=== PATIENT | female | born 1975 | race Two or more races ===

== ENCOUNTER 2017-01-25 06:16 | Day surgery (SDC) | payer OTHER ==
--- NOTE | 2017-01-21 22:49 | PREOPHP ---
DATE OF ADMISSION: 01/25/2017 The patient is coming on 01/25/2017 for a surgical procedure. HISTORY OF PRESENT ILLNESS: This is a 41-year-old female, 4, para 3 with 1 , 3 jayda ng children. This patient had seen me last year with a complaint of polycystic ovaries, weight gain , menometrorrhagia, pelvic pain, pelvic pressure all the time, history of fibroid uterus, endometrio sis, also history of her mother having the same problem, and dysmenorrhea, dyspareunia. This patien t had a history of a tubal ligation. ALLERGIES: 1. SHE IS ALLERGIC TO PENICILLIN. 2. LATEX. MEDICATIONS: 1. She is on spironolactone. 2. Metformin. FAMILY HISTORY: Hypertension, heart attacks, and strokes. PLAN: She is having a D and C, hysteroscopy, hydrothermal ablation. This patient had a tubal ligat ion. She would like to try to see if the procedure will help her have less pelvic pain and less ble eding, so a hydrothermal ablation was offered plus a D and C hysteroscopy to assess the endometrium for fibroids and also to rule out malignancy. At the same time, the patient had a vaginal septum th at has been there since many years and this will be removed due to the fact that it interferes durin g sexual intercourse. The patient has a history of PCO syndrome, fibroids, menometrorrhagia for a l dhiraj time that has become worse lately. PHYSICAL EXAMINATION: VITAL SIGNS: Blood pressure 120/70, pulse is 80, respirations 16. She weighs 122 pounds and she is 5 feet 9 inches. HEAD: Normal. NECK: Normal. BREASTS: Soft, nontender. No masses. CHEST: Clear. HEART: Normal sinus rhythm. LUNGS: Clear. ABDOMEN: Soft, nontender. No masses. GENITALIA: Normal externally. Cervix normal. Uterus retroverted, flexed, normal size with fibroid s about 8 weeks size, very painful. Adnexa are normal. EXTREMITIES: Normal. DIAGNOSES: 1. Fibroid uterus. 2. Menometrorrhagia. 3. Polycystic ovarian syndrome. She is undergoing a D and C hysteroscopy, hydrothermal ablation. The patient has been advised of th e possible risks and possible complications of the procedure with her alternatives and options. Wri tten information was provided. She had no more questions and agreed to go ahead with the procedure with full understanding and no more questions. Dictated By: BEATRICE NOWAK/KATELIN Conf#: [id number] DID#: [id number]
[2017-01-25] VITALS (11 sets, daily range): BP systolic 93–107; BP diastolic 52–73; PULSE 56–70; RESP 18–37; Ht 175.3 cm; Wt 98.1 kg
[~2017-01-25] VITALS: Ht 175.3 cm; Wt 98.1 kg
[2017-01-25] MEDS ORDERED: ETOMIDATE 20 MG INJ ONE (07:50)
[2017-01-25] MEDS ORDERED: LIDOCAINE 2% (SDV) 5 ML INJ ONE (07:51)
[2017-01-25] MEDS ORDERED: MIDAZOLAM 1 MG/ML 2 ML INJ ONE (07:51)
[2017-01-25] MEDS ORDERED: FENTAnyl 50 MCG/ML VIAL ONE (07:51)
--- NOTE | 2017-01-25 08:14 | HPN ---
Date/Time of Note Date/Time of Note DATE: 01/25/17 TIME: 08:14 Interval H&P Admission Note Pt. seen H&P reviewed: No system changes BEATRICE MEDINA MD January 25, 2017 08:14
[2017-01-25] MEDS ORDERED: DEXAMETHASONE 4 MG/ML 1 ML INJ ONE (08:26)
[2017-01-25] MEDS ORDERED: FAMOTIDINE 20 MG INJ ONE (08:26)
[2017-01-25] MEDS ORDERED: ONDANSETRON 4 MG INJ ONE (08:26)
[2017-01-25] MEDS ORDERED: CLINDAMYCIN 900 MG/D5W (PMX) 50 ML IVPB ONE ×2 (08:30→14:30)
[2017-01-25] MEDS ORDERED: DIPHENHYDRAMINE 50 MG INJ IV PRN (09:00)
[2017-01-25] MEDS ORDERED: MEPERIDINE 25 MG INJ IV PRN (09:00)
[2017-01-25] MEDS ORDERED: PROCHLORPERAZINE 10 MG INJ IV PRN (09:00)
[2017-01-25] MEDS ORDERED: HYDROmorphONE (0.2 MG/ML) 10ML SYG IV PRN (09:00)
--- NOTE | 2017-01-25 10:06 | PD.PPDC ---
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
--- NOTE | 2017-01-25 10:09 | OPR ---
Date/Time of Note Date/Time of Note DATE: 01/25/17 TIME: 10:07 Operative Report Free Text/Dictation FRACTIONAL D&C HYSTEROSCOPIC HYDROTHERMAL ABLATION Procedure Date: January 25, 2017 Preoperative Diagnosis INTRACTABLE UFNMI METRORRHAGIA FIBROID UTERUS PCO SYNDROME Postoperative Diagnosis SAME Surgeon: BEATRICE MEDINA MD Anesthesia: general Anesthesiologist: DONA DUARTE DO Estimated Blood Loss: minimal Complications: None Pt Condition Post Procedure: stable Disposition: PACU BEATRICE MEDINA MD January 25, 2017 10:09
[2017-01-25] MEDS: HYDROmorphONE (0.2 MG/ML) 10ML SYG IV PRN ×3 (10:18→10:30)
--- NOTE | 2017-01-25 10:28 | OPR ---
DATE OF OPERATION: 01/25/2017 PROCEDURE: Fractional D and C, hysteroscopic hydrothermal ablation. PREOPERATIVE DIAGNOSES: 1. Intractable menometrorrhagia. 2. Fibroid uterus. 3. Polycystic ovaries. 4. Obesity. POSTOPERATIVE DIAGNOSES: 1. Intractable menometrorrhagia. 2. Fibroid uterus. 3. Polycystic ovaries. 4. Obesity. SURGEON: Dr. Kebede ANESTHESIA: Dr. Nassar, general anesthesia. COMPLICATIONS: None. DESCRIPTION OF PROCEDURE: The patient was given general anesthesia and placed in the lithotomy posi tion. The perineal and vaginal area were prepped and draped, and a straight catheter was down to th e bladder. Examination under anesthesia revealed that there was a uterus that is retroverted with a fibroid of about 10 weeks' size. The adnexa were nonpalpable. There was some prolapse of the uter us to a grade II to III. The vaginal speculum was applied. The cervix was held. Endocervical cure ttage was done. The uterus was sounded to a depth of 10 cm and dilated slightly, because it was alr penny dilated. The curettage was done to the cavity, obtaining the tissue for histopathology. The h ydrothermal ablation hysteroscope was placed inside the cavity with ascertaining. We put a lot of s eal around the cervix due to the fact that the cervix was slightly incompetent. The machine warmed up the media to 90 degrees Celsius, where the flow went in the lining of the uterus, doing the hydro thermal ablation. This was done for 10 minutes. Then the media cooled down and the procedure was f inished by removing all the instruments. The patient tolerated the procedure well and left the OR a wake and stable. Sponge counts and instrument counts were correct and intravenous antibiotics were given for prophylaxis. Dictated By: BEATRICE NOWAK/KATELIN Conf#: [id number] DID#: [id number]
[2017-01-25] MEDS ORDERED: KETOROLAC 30 MG INJ IV PRN (10:30)
[2017-01-25] MEDS ORDERED: KETOROLAC 30 MG INJ IV ONE (10:30)
--- NOTE | 2017-01-25 11:29 | RADRPT ---
Vent Rate: 51 bpm RR Interval: 0 msec DE Interval: 124 msec QRS Duration: 94 msec QT Interval: 456 msec QTC Interval: 420 msec P-R-T Galien: 46 - 45 - 37 degrees Sinus bradycardia Otherwise normal ECG Electronically Signed By: Terrance Delacruz [id number]
== END 2017-01-25 11:30 | disposition home or self-care (01) ==
LOC: SDS 06:16
PROVIDERS: ATTEND Obstetrics & Gynecology
DX: N72 Inflammatory disease of cervix uteri (principal); E28.2 Polycystic ovarian syndrome; D25.9 Leiomyoma of uterus, unspecified; E66.9 Obesity, unspecified; Z68.31 Body mass index [BMI] 31.0-31.9, adult
CPT/HCPCS: 58563; 88305; 93005; J1100; J1170; J1885; J2175; J2250; J2405; J3010; Z7512; Z7610

== ENCOUNTER 2017-08-07 06:18 | Inpatient (IN) | payer OTHER ==
[2017-08-07] VITALS (33 sets, daily range): BP systolic 103–131; BP diastolic 55–84; PULSE 67–92; RESP 12–30; Ht 175.3 cm; Wt 99.7 kg
[~2017-08-07] VITALS: Ht 175.3 cm; Wt 99.7 kg
[2017-08-07] MEDS ORDERED: PROPOFOL 20 ML ONE (06:30)
[2017-08-07] MEDS ORDERED: CLINDAMYCIN 900 MG/D5W (PMX) 50 ML IVPB SCH (06:30)
[2017-08-07] MEDS ORDERED: FENTAnyl 50 MCG/ML VIAL IV PRN ×3 (06:30→11:00)
[2017-08-07] MEDS ORDERED: morphine (1 MG/ML) 10ML SYRINGE IV PRN ×3 (06:30)
[2017-08-07] MEDS ORDERED: OXYCODONE/ACETAMINOPHEN (5/325) TAB PO PRN ×2 (06:30)
[2017-08-07] MEDS ORDERED: DEXTROSE 5%-LR 1,000 ML IV SCH (06:30)
[2017-08-07] MEDS ORDERED: ONDANSETRON 4 MG INJ IV PRN ×3 (06:30→14:00)
[2017-08-07] MEDS ORDERED: GLYCOPYRROLATE 0.4 MG INJ ONE (06:30)
[2017-08-07] MEDS ORDERED: DIPHENHYDRAMINE 50 MG INJ IV PRN (06:30)
[2017-08-07] MEDS ORDERED: hydrALAzine 20 MG INJ IV PRN (06:30)
[2017-08-07] MEDS ORDERED: ROCURONIUM 50 MG INJ ONE (06:30)
[2017-08-07] MEDS ORDERED: MEPERIDINE 25 MG INJ IV PRN ×2 (06:30→11:00)
[2017-08-07] MEDS ORDERED: MIDAZOLAM 1 MG/ML 2 ML INJ IV PRN (06:30)
[2017-08-07] MEDS ORDERED: ATROPINE 1 MG/10 ML SYRINGE IV PRN (06:30)
[2017-08-07] MEDS ORDERED: LIDOCAINE 2% (SDV) 5 ML INJ ONE (06:30)
[2017-08-07] MEDS ORDERED: NEOSTIGMINE 3 MG/3 ML SYRINGE ONE (06:30)
[2017-08-07] MEDS ORDERED: LABETALOL HCL 20MG INJ IV PRN (06:30)
[2017-08-07] MEDS ORDERED: EPHEDrine SULFATE 50 MG/5 ML SYG IV PRN (06:30)
[2017-08-07] MEDS ORDERED: HYDROmorphONE (0.2 MG/ML) 10ML SYG IV PRN ×3 (06:30)
[2017-08-07] MEDS ORDERED: FENTAnyl 50 MCG/ML VIAL ONE ×2 (06:31→10:55)
[2017-08-07] MEDS ORDERED: MIDAZOLAM 1 MG/ML 2 ML INJ ONE (06:31)
[2017-08-07] MEDS ORDERED: SUGAMMADEX SODIUM 200 MG/2 ML VIAL IV ONE (06:37)
[2017-08-07] MEDS ORDERED: DEXAMETHASONE 4 MG/ML 1 ML INJ ONE (06:37)
[2017-08-07] MEDS ORDERED: ONDANSETRON 4 MG INJ ONE ×2 (06:37→10:55)
[2017-08-07] MEDS ORDERED: CLINDAMYCIN 900 MG/50 ML D5W IVPB IVPB ONE (07:00)
[2017-08-07] MEDS ORDERED: EPHEDrine SULFATE 50 MG/5 ML SYG ONE (07:00)
[2017-08-07] MEDS ORDERED: THROMBIN 5000 UNIT VIAL ONE (07:05)
[2017-08-07] MEDS ORDERED: BUPIVACAINE 0.5%/EPI (SDV) 30 ML INJ ONE (07:05)
--- NOTE | 2017-08-07 07:52 | HPN ---
Date/Time of Note Date/Time of Note DATE: 08/07/17 TIME: 07:52 Interval H&P Admission Note Pt. seen H&P reviewed: No system changes BEATRICE MEDINA MD Aug 07, 2017 07:52
--- NOTE | 2017-08-07 07:53 | PREOPHP ---
DATE OF ADMISSION: 08/07/2017 The patient is coming on Saturday for a hysterectomy. HISTORY OF PRESENT ILLNESS: This is a 42-year-old female, 4, para 3, abortions 1, with a pr evious tubal ligation. This patient has been having difficulties due to a fibroid uterus, endometri osis, intractable pelvic pain and bleeding that has been intractable with medication. This patient also had in 12/2016 a hydrothermal ablation to try to control her bleeding and pain and she is still not able to perform her regular activities due to pain on a daily basis. This patient has a histor y of endometriosis and a history of endometriosis as well, where her mother had endometriosis. She could not take the control pills due to side effects or IUD for the same reasons, and she is r equesting alleviation of her pain due to her suffering from cramping and back pain on a daily basis. She is constantly on pain medication, which is diclofenac 75 mg and she has to be on lorazepam 1 m g because of the same reason. PAST MEDICAL HISTORY: As I said in the HPI; she had early menopause. She has dysmenorrhea, dyspare unia and a history of tubal ligation. She also has a history of polycystic ovaries and weight gain. ALLERGIES: THE PATIENT IS ALLERGIC TO PENICILLIN AND LATEX. MEDICATIONS: She has been on lorazepam, diclofenac, and metformin. FAMILY HISTORY: Hypertension, heart attacks and strokes. PHYSICAL EXAMINATION: GENERAL APPEARANCE: She is obese. Her weight is 219. She is 5 feet 9 inches. VITAL SIGNS: Pulse is 80. HEAD AND NECK: Normal. BREASTS: Soft, nontender, no masses. CHEST: Clear. HEART: Normal sinus rhythm. LUNGS: Clear. BREASTS: Soft, nontender, no masses. ABDOMEN: Soft, nontender, no masses. GENITALIA: Very painful on examination with a retroverted flexed uterus with fibroids, very painful mobilization. Adnexa are also noncontributory with no adnexal mass. EXTREMITIES: Normal. RECTAL: Normal. DIAGNOSES: Intractable pelvic pain and bleeding, early fibroid uterus, endometriosis. PLAN: She is undergoing a vaginal total hysterectomy, possible KARLO. The patient was recently place d on Wellbutrin to be able to cope with her problems. She had a history of taking metformin that wa s for her polycystic ovaries. Last Pap smear was normal. The patient has been advised of the possi ble risks and possible complications of the procedure with her alternatives and options. Written in formation was provided. She had no more questions and agreed to go ahead with the procedure with fu ll understanding and no more questions. Dictated By: BEATRICE NOWAK/KATELIN Conf#: [id number] DID#: [id number]
[2017-08-07] MEDS ORDERED: DIPHENHYDRAMINE 50 MG INJ ONE (08:53)
[2017-08-07] MEDS ORDERED: LIDOCAINE 4% CR ONE (09:26)
--- NOTE | 2017-08-07 10:27 | SIPON ---
Date/Time of Note Date/Time of Note DATE: 08/07/17 TIME: 10:22 Operative Report Preoperative Diagnosis INTRACTABLE PELVIC PAIN AND BLEEDING FIBROID UTERUS AND ENDOMETRIOSIS EARLY MENOPAUSE Postoperative Diagnosis SAME Operation/Procedure Performed VAGINAL TOTAL HYSTERECTOMY Surgeon see signature line surgical assistant NANCY Anesthesia: general Estimated blood loss: 10 - 50 ml's Transfusion Required none Specimen UTERUS Grafts/Implants none Complications none BEATRICE MEDINA MD Aug 07, 2017 10:27
[2017-08-07] MEDS ORDERED: DIPHENHYDRAMINE 50 MG CAP PO PRN (10:30)
[2017-08-07] MEDS ORDERED: BISACODYL (EC) 5 MG TAB PO PRN (10:30)
[2017-08-07] MEDS ORDERED: MEPERIDINE 10 MG/ML 30 ML PCA IV SCH ×2 (10:30→14:30)
[2017-08-07] MEDS ORDERED: ZOLPIDEM 5 MG TAB PO PRN (10:30)
[2017-08-07] MEDS ORDERED: MEPERIDINE 25 MG INJ ONE (10:56)
[2017-08-07] MEDS: KETOROLAC 30 MG INJ IV SCH ×3 (10:56→22:31)
[2017-08-07] MEDS: METOCLOPRAMIDE 10 MG TAB PO SCH ×2 (12:00→17:43)
--- NOTE | 2017-08-07 12:03 | OPR ---
DATE OF OPERATION: 08/07/2017 PREOPERATIVE DIAGNOSES: 1. Intractable pelvic pain and bleeding. 2. Fibroid uterus, endometriosis. 3. Chronic pelvic pain. 4. Early menopause. POSTOPERATIVE DIAGNOSES: 1. Intractable pelvic pain and bleeding. 2. Fibroid uterus, endometriosis. 3. Chronic pelvic pain. 4. Early menopause. SURGEON: Beatrice Kebede MD. ANESTHESIOLOGIST: Brian Marshall MD ANESTHESIA: General. DESCRIPTION OF PROCEDURE: The patient was given general anesthesia, placed in the lithotomy positi on. The perineal and vaginal area were prepped and draped and the anesthesia had been given. The e xamination under anesthesia revealed that the uterus was retroverted and hypertrophic. Adnexa were nonpalpable. The vaginal speculum was applied. The cervix was held with a Jolie clamp and an injec tion was given around the cervicovaginal junction with Xylocaine and epinephrine. The incision was made at the cervicovaginal junction. A circular incision was made. The anterior cul-de-sac was fou nd and the posterior cul-de-sac was found. The cardinal ligaments and uterosacral ligaments and mira rine arteries were burned with the LigaSure instrument and at this time, the uterus was inverted. T he Ada clamp was passed through the ovarian tube and ligament and the uterus was removed in both sides. The adnexal pedicles stump was closed with #2 [id number] sutures with #1 Vicryl and the se sutures were held. Now at the area of the cardinal ligaments, a couple of stitches were placed w ith the #1 Vicryl and these stitches were held. The adnexal pedicle and the cardinal ligaments were tied to ipsilateral side. The area anteriorly with a Vázquez needle, the adnexal pedicle was passed through, the stump was held at the anterior vaginal vault and the cardinal ligaments, uterosacral l igaments were held at the posterior vaginal vault. At this time, the visualization inside was of no bleeding. The ovaries were not visualized along with the tubes. They both were very high up in th e pelvis. This patient is very tall and has very long vagina, has no prolapse. The peritonealizati on was done with a 2-0 Vicryl suture and the cavity was closed. The adnexal pedicles and the uteros acral ligament pedicles were tied to the anterior and posterior vaginal vault lifting the vaginal va ult. The rest of the vagina was closed with a vertical stitch with #1 Vicryl and hemostasis was goo d. Xeroform gauze was left in the vagina. The patient tolerated the procedure well and left the OR awake and stable. Sponge counts, instrument counts, needle counts were correct and intravenous ant ibiotics were given for prophylaxis. Dictated By: BEATRICE NOWAK/KATELIN Conf#: [id number] DID#: [id number]
[2017-08-07] MEDS: LACTATED RINGER'S 1,000 ML IV SCH ×3 (13:49→21:40)
[2017-08-08] MEDS: METOCLOPRAMIDE 10 MG TAB PO SCH ×4 (00:01→17:33)
[2017-08-08 01:28] VITALS: BP 109/51; RESP 18
[2017-08-08] MEDS: KETOROLAC 30 MG INJ IV SCH ×4 (04:56→22:37)
[2017-08-08 05:18] LABS: BASOPHILS % 0.2 % (0.0-2.0); EOSINOPHILS % 0.1 % (0.0-7.0); HEMATOCRIT 38.2 % (37.0-47.0); HEMOGLOBIN 12.9 g/dl (12.0-16.0); LYMPHOCYTES # 1.7 10^3/ul (0.8-2.9); LYMPHOCYTES % 10.9 % (15.0-51.0); MEAN CORPUSCULAR HEMOGLOBIN 30.4 pg (29.0-33.0); MEAN CORPUSCULAR HGB CONC 33.8 g/dl (32.0-37.0); MEAN CORPUSCULAR VOLUME 90.1 fl (82.0-101.0); MEAN PLATELET VOLUME 10.1 fl (7.4-10.4); MONOCYTES % 6.6 % (0.0-11.0); NEUTROPHIL # 12.8 10^3/ul (1.6-7.5); NEUTROPHILS % 81.5 % (39.0-77.0); PLATELET COUNT 200 10^3/UL (140-415); RED BLOOD COUNT 4.24 10^6/ul (4.20-5.40); RED CELL DISTRIBUTION WIDTH 11.9 % (11.5-14.5); WHITE BLOOD COUNT 15.7 10^3/ul (4.8-10.8)
[2017-08-08 05:42] LABS: CREATININE 0.66 mg/dl (0.44-1.00); POTASSIUM 3.8 mmol/L (3.5-5.1)
[2017-08-08] MEDS: LACTATED RINGER'S 1,000 ML IV SCH (06:48)
[2017-08-08 07:33] VITALS: BP 104/57; RESP 20
[2017-08-08] MEDS ORDERED: BISACODYL (EC) 5 MG TAB PO ONE (10:30)
--- NOTE | 2017-08-08 10:31 | PN ---
Date/Time of Note Date/Time of Note DATE: 08/08/17 TIME: 10:30 Assessment/Plan Lines/Catheters IV Catheter Type (from Nrsg): Peripheral IV Bales in Place (from Nrsg): Yes Subjective 24 Hr Interval Summary Day 1 post vaginal hysterectomy Feeling okay except for some pain Passing gases already Stable, afebrile Vaginal pack removed dry Bales will be discontinued now Encouraged ambulation Surgery explained to patient She feels good overall Patient is thankful Constitutional: BM, ambulates, flatus, improved, no complaints, urine output Feeding: advancing diet Pain Control: well controlled Detailed Summary Eyes: no complaints ENT: no complaints Respiratory: no complaints Cardiovascular: no complaints Gastrointestinal: no complaints Genitourinary: no complaints Musculoskeletal: no complaints Skin: no complaints Neurologic: no complaints Endocrine: no complaints Lymphatic: no complaints Psychological: nl mood/affect, no complaints Immunologic: no complaints Exam/Review of Systems Vital Signs Vitals Vital Signs Date Time Temp Pulse Resp B/P Pulse Ox O2 Delivery O2 Flow Rate FiO2 08/08/17 07:33 98.1 68 20 104/57 100 08/07/17 17:00 Room Air Intake and Output 08/07/17 08/07/17 08/08/17 15:00 23:00 07:00 Intake Total 1120 ml 2390 ml 1250 ml Output Total 250 ml 1500 ml 1200 ml Balance 870 ml 890 ml 50 ml Exam Constitutional: alert, oriented, well developed Psych: nl mood/affect, no complaints Head: atraumatic, normocephalic Eyes: EOMI, nl conjunctiva, nl lids, nl sclera ENMT: mucosa pink and moist, nl external ears & nose, nl lips & teeth, nl nasal mucosa & septum Neck: non-tender, supple Respiratory: clear to auscultation, normal air movement Cardiovascular: nl pulses, regular rate and rhythm Gastrointestinal: nl liver, spleen, non-tender, soft Musculoskeletal: nl extremities to inspection, nl gait and stance Extremities: normal pulses 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
[2017-08-08] MEDS ORDERED: MEPERIDINE 10 MG/ML 30 ML PCA IV SCH (11:00)
[2017-08-08] MEDS ORDERED: METOCLOPRAMIDE 10 MG TAB PO SCH (12:00)
[2017-08-08 14:40] VITALS: BP 122/73; RESP 18
[2017-08-08 20:00] VITALS: BP 115/61; RESP 18
[2017-08-09 02:05] VITALS: BP 114/78; RESP 18
[2017-08-09] MEDS: METOCLOPRAMIDE 10 MG TAB PO SCH ×3 (06:00→12:00)
[2017-08-09] MEDS: KETOROLAC 30 MG INJ IV SCH ×2 (06:46→11:10)
[2017-08-09 07:49] VITALS: BP 119/76; RESP 19
[2017-08-09 07:56] LABS: BASOPHIL # 0.1 10^3/ul (0.0-0.1); BASOPHILS % 0.6 % (0.0-2.0); EOSINOPHILS # 0.3 10^3/ul (0.0-0.5); EOSINOPHILS % 3.1 % (0.0-7.0); HEMATOCRIT 37.8 % (37.0-47.0); HEMOGLOBIN 12.6 g/dl (12.0-16.0); LYMPHOCYTES # 2.1 10^3/ul (0.8-2.9); MEAN CORPUSCULAR HEMOGLOBIN 30.4 pg (29.0-33.0); MEAN CORPUSCULAR HGB CONC 33.3 g/dl (32.0-37.0); MEAN CORPUSCULAR VOLUME 91.3 fl (82.0-101.0); MEAN PLATELET VOLUME 10.6 fl (7.4-10.4); MONOCYTE # 0.8 10^3/ul (0.3-0.9); MONOCYTES % 8.7 % (0.0-11.0); NEUTROPHIL # 5.8 10^3/ul (1.6-7.5); PLATELET COUNT 193 10^3/UL (140-415); RED BLOOD COUNT 4.14 10^6/ul (4.20-5.40); RED CELL DISTRIBUTION WIDTH 12.2 % (11.5-14.5)
--- NOTE | 2017-08-09 11:18 | PD.PPDC ---
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
--- NOTE | 2017-08-09 11:23 | DS ---
Date/Time of Note Date/Time of Note DATE: 08/09/17 TIME: 11:18 Discharge Summary Admission/Discharge Info Admit Date/Time Aug 07, 2017 at 06:18 Discharge Date/Time Discharge Diagnosis Vaginal hysterectomy Fibroid uterus Intractable pelvic pain and menometrorrhagia Patient Condition: Good Procedures Vaginal hysterectomy Hx of Present Illness 42 years old female with intractable pelvic pain and menometrorrhagia Fibroid uterus was diagnosed with anemia Lupron injections were given to decrease the size of the uterus to be able to remove the uterus vaginally Vaginal hysterectomy was done without complications and she was sent home on her second postoperative day with instructions of what to do and not to do She was voiding well having bowel movements and pain was controlled with p.o. meds Laboratory testing were within normal She was given further instructions and warning signs for her to call me at any time. She was stable afebrile and in very good conditions and very happy to go home Hospital Course As I mentioned above uneventfully Follow-up Plan 1 week in my office Primary Care Provider Not On Staff Doctor Pending Labs Laboratory Tests Test 08/09/17 04:26 08/09/17 06:54 White Blood Count 9.010^3/ul (4.8-10.8) Red Blood Count 4.1410^6/ul (4.20-5.40) Hemoglobin 12.6g/dl (12.0-16.0) Hematocrit 37.8% (37.0-47.0) Mean Corpuscular Volume 91.3fl (82.0-101.0) Mean Corpuscular Hemoglobin 30.4pg (29.0-33.0) Mean Corpuscular Hemoglobin Concent 33.3g/dl (32.0-37.0) Red Cell Distribution Width 12.2% (11.5-14.5) Platelet Count 78961^3/UL (140-415) Mean Platelet Volume 10.6fl (7.4-10.4) Neutrophils % 64.0% (39.0-77.0) Lymphocytes % 23.0% (15.0-51.0) Monocytes % 8.7% (0.0-11.0) Eosinophils % 3.1% (0.0-7.0) Basophils % 0.6% (0.0-2.0) Nucleated Red Blood Cells % 0.0/100WBC (0.0-0.0) Neutrophils # 5.810^3/ul (1.6-7.5) Lymphocytes # 2.110^3/ul (0.8-2.9) Monocytes # 0.810^3/ul (0.3-0.9) Eosinophils # 0.310^3/ul (0.0-0.5) Basophils # 0.110^3/ul (0.0-0.1) Nucleated Red Blood Cells # 0.010^3/ul (0.0-0.0) Lab Scanned Report [id number] BEATRICE MEDINA MD Aug 09, 2017 11:23
[2017-08-09] MEDS ORDERED: VITAMIN A & D 5 GM OINT PACKET TOP ONE (12:12)
== END 2017-08-09 13:20 | disposition home or self-care (01) | DRG 743 ==
LOC: REC 06:18 → MS1 11:49
PROVIDERS: ADMIT Obstetrics & Gynecology; ATTEND Obstetrics & Gynecology
PROC: 0UT9FZZ Resection of Uterus, Via Natural or Artificial Opening With Percutaneous Endoscopic Assistance (ICD-10-PCS; principal; 2017-08-07 07:30)
DX: N80.9 Endometriosis, unspecified (principal); D25.9 Leiomyoma of uterus, unspecified; D64.9 Anemia, unspecified; R10.2 Pelvic and perineal pain; N93.9 Abnormal uterine and vaginal bleeding, unspecified; N80.0 Endometriosis of uterus; N92.1 Excessive and frequent menstruation with irregular cycle
CPT/HCPCS: 80051; 82565; 84520; 85025; 87086; 88305; J1100; J1200; J1885; J2175; J2250; J2405; J2710; J3010; J7120; J7121